=== PATIENT | female | born 1945 | race Caucasian/White ===

== ENCOUNTER 2017-12-22 14:12 | Observation (INO) ==
--- NOTE | 2017-12-22 14:45 | ED ---
HPI General Chief Complaint: Altered Mental Status Stated Complaint: Medical Time Seen by Provider: 12/22/17 14:14 Source: EMS Mode of arrival: EMS Limitations: altered mental status History of Present Illness HPI narrative: 72-year-old female patient presents to the ER today brought in by EMS, apparently according to the family she has been having diarrhea, was helped to the bathroom by family today and was taking a shower when they heard a thud, went in there, found her unresponsive on the floor, and EMS found that she was unresponsive, GCS of 4, started bag valve mask on her because she was breathing at a rate of 4 breaths a minute, and they initially did not get a pulse but once they got her back to the ambulance were able to feel pulse. Patient slowly became more oriented in the ER, does not remember what happened, but does state that she has been having diarrhea. Related Data Home Medications Medication Instructions Recorded Confirmed Unable to Obtain Home Meds 12/22/17 12/22/17 Allergies Allergy/AdvReac Type Severity Reaction Status Date / Time penicillin G Allergy Unknown Nausea Unverified 12/22/17 14:23 Review of Systems ROS Unobtainable unobtainable due to mental status [facility] Medical History Medical History COPD (chronic obstructive pulmonary disease) (Acute) Hyperlipemia (Acute) Hypertension (Acute) Social History Social History Substance History: Active Abuse Second Hand Smoke Exposure: No Smoking Status: Former smoker How Often Do You Have a Drink Containing Alcohol: Never Recent Travel in [facility] within the Last 8 Weeks: No Recent Out of Country Travel within the Last 8 Weeks: No Substance Abuse Detail Marijuana: Substance Use Type Other:: marijuana Immunization History Tetanus Immunization: Unsure Hx Influenza Vaccine This Season: Unable to Assess Exam Narrative Exam Narrative: GENERAL: Well-developed elderly white female patient currently in moderate distress, lethargic, disoriented. SKIN: Focused skin assessment warm/dry. HEAD: Atraumatic. Normocephalic. EYES: Pupils small, equal and round. No scleral icterus. No injection or drainage. ENT: No nasal bleeding or discharge. Mucous membranes pink and moist. NECK: Trachea midline. No JVD. C-collar in place. CARDIOVASCULAR: Regular rate and rhythm. No murmur appreciated. RESPIRATORY: No accessory muscle use. Mild wheezing bilaterally. Breath sounds equal bilaterally. GASTROINTESTINAL: Abdomen soft, non-tender, nondistended. Hepatic and splenic margins not palpable. MUSCULOSKELETAL: No obvious deformities. No clubbing. No cyanosis. No edema. NEUROLOGICAL: Lethargic, disoriented, not following commands, slurred speech. PSYCHIATRIC: Lethargic and disoriented, could not assess. Course Hospital Course: Patient apparently has been having some diarrhea at home, had been given Imodium by her son, and she was complaining today of some respiratory distress, was unresponsive when EMS got there, apneic with respiratory rate of 4, and while in the ER she became more responsive on her own, has been on O2 nasal cannula. It is unclear what caused the episode. Patient does have COPD history. Chest x-ray did not show any signs of obvious pathology. ABG shows some hypercarbia but not significant in this case to have caused this. She does have elevated ammonia levels of uncertain etiology. Her lactate was elevated as well. At this point, she is alert and awake, CAT scan of the brain and neck was unremarkable and c-collar was cleared. My plan would be to admit her for further evaluation of the syncopal episode and apneic episode. Case was discussed with Dr. Glasgow for admission. Initial Documented Vital Signs Pulse Rate 102 H 12/22/17 14:14 Respiratory Rate 14 12/22/17 14:14 Pulse Oximetry 92 L 12/22/17 14:14 Last Documented Vital Signs Temperature 98.7 F 12/22/17 16:12 Pulse Rate 73 12/22/17 16:12 Respiratory Rate 14 12/22/17 16:12 Blood Pressure 103/58 L 12/22/17 16:12 Pulse Oximetry 95 12/22/17 16:12 Medical Decision Making Differential Diagnosis Differential Diagnosis: Syncope versus CVA versus electrolyte abnormalities versus dysrhythmias versus sepsis Lab Data Result diagrams: 12/22/17 14:40 12/22/17 14:40 Lab Results 12/22/17 12/22/17 12/22/17 Range/Units 14:40 14:40 14:40 WBC 10.1 (4.0-11.0) th/mm3 RBC 5.17 (4.00-5.30) mil/mm3 Hgb 14.5 (11.6-15.3) gm/dL Hct 44.6 (35.0-46.0) % MCV 86.3 (80.0-100.0) fL MCH 28.1 (27.0-34.0) pg MCHC 32.5 (32.0-36.0) % RDW 15.7 (11.6-17.2) % Plt Count 355 (150-450) th/mm3 MPV 7.8 (7.0-11.0) fL Prelim Diff (Auto) Slide review pending Neut % (Auto) 34.9 (16.0-70.0) % Lymph % (Auto) 54.2 H (9.0-44.0) % [place] % (Auto) 6.1 (0.0-8.0) % Eos % (Auto) 4.3 H (0.0-4.0) % Baso % (Auto) 0.5 (0.0-2.0) % Neut # (Auto) 3.5 (1.8-7.7) th/mm3 Lymph # (Auto) 5.5 H (1.0-4.8) th/mm3 [place] # (Auto) 0.6 (0.0-0.9) th/mm3 Eos # (Auto) 0.4 (0.0-0.4) th/mm3 Baso # (Auto) 0.0 (0.0-0.2) th/mm3 WBC Differential Manual diff final Seg Neuts % (Manual) 29 (16-70) % Band Neuts % (Manual) 1 (0-6) % Lymphocytes % (Manual) 65 H (9-44) % Monocytes % (Manual) 2 (0-8) % Eosinophils % (Manual) 3 (0-4) % Abs Neuts (Manual) 3.0 (1.8-7.7) th/mm3 Differential Comment . Platelet Estimate Normal (Normal) Platelet Morphology Normal (Normal) PT 13.0 H (9.8-11.6) sec INR 1.3 Ratio APTT 30.0 (24.3-30.1) sec Puncture Site Patient Temperature O2 Saturation (90-100) % ABG pH (7.380-7.420) ABG pCO2 (38-42) mmHg ABG pO2 (61-120) mmHg ABG HCO3 (22-26) mmol/L ABG O2 Content (12.0-20.0) Vol % ABG Base Excess (-2-2) mmol/L ABG Methemoglobin (0-2) % Cj Test Hemoglobin (12.0-16.0) G/DL Carboxyhemoglobin (0-4) % O2 Delivery Device Inspired O2 % Critical Value Sodium 140 (136-145) meq/L Potassium 4.1 (3.5-5.1) meq/L Chloride 104 (98-107) meq/L Carbon Dioxide 22.6 (21.0-32.0) meq/L Anion Gap 13 (5-15) meq/L BUN 16 (7-18) mg/dL Creatinine 1.30 H (0.50-1.00) mg/dL Estimated GFR 40 L (>89) mL/min Random Glucose 186 H (74-106) mg/dL Lactic Acid (0.4-2.0) mmol/L Calcium 8.8 (8.5-10.1) mg/dL Total Bilirubin 0.5 (0.2-1.0) mg/dL AST 162 H (15-37) U/L ALT 79 H (10-53) U/L Alkaline Phosphatase 149 H (45-117) U/L Ammonia (11-32) mcmol/L Troponin I Less than 0.02 L (0.02-0.05) ng/mL Total Protein 7.3 (6.4-8.2) g/dL Albumin 3.7 (3.4-5.0) g/dL TSH 2.560 (0.358-3.740) uIU/mL Urine Color (Yellw/Straw) Urine Clarity (Clear) Urine pH (5.0-8.5) Ur Specific [place] (1.002-1.035) Urine Protein (Neg-Trace) mg/dL Urine Glucose (UA) (Negative) mg/dL Urine Ketones (Negative) mg/dL Urine Occult Blood (Negative) Urine Nitrate (Negative) Urine Bilirubin (Negative) Urine Urobilinogen (Less than 2) mg/dL Ur Leukocyte Esterase (Negative) Urine RBC (0-3) /hpf Urine WBC (0-5) /hpf Ur Squamous Epith Cells (0-5) /hpf Hyaline Casts (0-3) /lpf Urine Mucus (Occasional) /lpf Micro UA Comment Urine Culture Comments Urine Opiates Screen (Neg) Ur Barbiturates Screen (Neg) Ur Amphetamines Screen (Neg) U Benzodiazepines Scrn (Neg) Urine Cocaine Screen (Neg) U Cannabinoids Screen (Neg) Serum Alcohol Less than 3 (0-5) mg/dL 12/22/17 12/22/17 12/22/17 Range/Units 14:40 14:40 14:40 WBC (4.0-11.0) th/mm3 RBC (4.00-5.30) mil/mm3 Hgb (11.6-15.3) gm/dL Hct (35.0-46.0) % MCV (80.0-100.0) fL MCH (27.0-34.0) pg MCHC (32.0-36.0) % RDW (11.6-17.2) % Plt Count (150-450) th/mm3 MPV (7.0-11.0) fL Prelim Diff (Auto) Neut % (Auto) (16.0-70.0) % Lymph % (Auto) (9.0-44.0) % [place] % (Auto) (0.0-8.0) % Eos % (Auto) (0.0-4.0) % Baso % (Auto) (0.0-2.0) % Neut # (Auto) (1.8-7.7) th/mm3 Lymph # (Auto) (1.0-4.8) th/mm3 [place] # (Auto) (0.0-0.9) th/mm3 Eos # (Auto) (0.0-0.4) th/mm3 Baso # (Auto) (0.0-0.2) th/mm3 WBC Differential Seg Neuts % (Manual) (16-70) % Band Neuts % (Manual) (0-6) % Lymphocytes % (Manual) (9-44) % Monocytes % (Manual) (0-8) % Eosinophils % (Manual) (0-4) % Abs Neuts (Manual) (1.8-7.7) th/mm3 Differential Comment Platelet Estimate (Normal) Platelet Morphology (Normal) PT (9.8-11.6) sec INR Ratio APTT (24.3-30.1) sec Puncture Site Patient Temperature O2 Saturation (90-100) % ABG pH (7.380-7.420) ABG pCO2 (38-42) mmHg ABG pO2 (61-120) mmHg ABG HCO3 (22-26) mmol/L ABG O2 Content (12.0-20.0) Vol % ABG Base Excess (-2-2) mmol/L ABG Methemoglobin (0-2) % Cj Test Hemoglobin (12.0-16.0) G/DL Carboxyhemoglobin (0-4) % O2 Delivery Device Inspired O2 % Critical Value Sodium (136-145) meq/L Potassium (3.5-5.1) meq/L Chloride (98-107) meq/L Carbon Dioxide (21.0-32.0) meq/L Anion Gap (5-15) meq/L BUN (7-18) mg/dL Creatinine (0.50-1.00) mg/dL Estimated GFR (>89) mL/min Random Glucose (74-106) mg/dL Lactic Acid 7.5 H* (0.4-2.0) mmol/L Calcium (8.5-10.1) mg/dL Total Bilirubin (0.2-1.0) mg/dL AST (15-37) U/L ALT (10-53) U/L Alkaline Phosphatase (45-117) U/L Ammonia 78 H (11-32) mcmol/L Troponin I (0.02-0.05) ng/mL Total Protein (6.4-8.2) g/dL Albumin (3.4-5.0) g/dL TSH (0.358-3.740) uIU/mL Urine Color (Yellw/Straw) Urine Clarity (Clear) Urine pH (5.0-8.5) Ur Specific [place] (1.002-1.035) Urine Protein (Neg-Trace) mg/dL Urine Glucose (UA) (Negative) mg/dL Urine Ketones (Negative) mg/dL Urine Occult Blood (Negative) Urine Nitrate (Negative) Urine Bilirubin (Negative) Urine Urobilinogen (Less than 2) mg/dL Ur Leukocyte Esterase (Negative) Urine RBC (0-3) /hpf Urine WBC (0-5) /hpf Ur Squamous Epith Cells (0-5) /hpf Hyaline Casts (0-3) /lpf Urine Mucus (Occasional) /lpf Micro UA Comment Urine Culture Comments Urine Opiates Screen Neg (Neg) Ur Barbiturates Screen Neg (Neg) Ur Amphetamines Screen Neg (Neg) U Benzodiazepines Scrn Neg (Neg) Urine Cocaine Screen Neg (Neg) U Cannabinoids Screen Pos H (Neg) Serum Alcohol (0-5) mg/dL 12/22/17 12/22/17 Range/Units 14:40 16:35 WBC (4.0-11.0) th/mm3 RBC (4.00-5.30) mil/mm3 Hgb (11.6-15.3) gm/dL Hct (35.0-46.0) % MCV (80.0-100.0) fL MCH (27.0-34.0) pg MCHC (32.0-36.0) % RDW (11.6-17.2) % Plt Count (150-450) th/mm3 MPV (7.0-11.0) fL Prelim Diff (Auto) Neut % (Auto) (16.0-70.0) % Lymph % (Auto) (9.0-44.0) % [place] % (Auto) (0.0-8.0) % Eos % (Auto) (0.0-4.0) % Baso % (Auto) (0.0-2.0) % Neut # (Auto) (1.8-7.7) th/mm3 Lymph # (Auto) (1.0-4.8) th/mm3 [place] # (Auto) (0.0-0.9) th/mm3 Eos # (Auto) (0.0-0.4) th/mm3 Baso # (Auto) (0.0-0.2) th/mm3 WBC Differential Seg Neuts % (Manual) (16-70) % Band Neuts % (Manual) (0-6) % Lymphocytes % (Manual) (9-44) % Monocytes % (Manual) (0-8) % Eosinophils % (Manual) (0-4) % Abs Neuts (Manual) (1.8-7.7) th/mm3 Differential Comment Platelet Estimate (Normal) Platelet Morphology (Normal) PT (9.8-11.6) sec INR Ratio APTT (24.3-30.1) sec Puncture Site Right radial Patient Temperature 98.6 O2 Saturation 92 (90-100) % ABG pH 7.40 (7.380-7.420) ABG pCO2 45 H (38-42) mmHg ABG pO2 74 (61-120) mmHg ABG HCO3 27 H (22-26) mmol/L ABG O2 Content 16.9 (12.0-20.0) Vol % ABG Base Excess 2.8 H (-2-2) mmol/L ABG Methemoglobin 0.6 (0-2) % Cj Test Y Hemoglobin 13.1 (12.0-16.0) G/DL Carboxyhemoglobin 0.9 (0-4) % O2 Delivery Device Ra Inspired O2 21 % Critical Value No Sodium (136-145) meq/L Potassium (3.5-5.1) meq/L Chloride (98-107) meq/L Carbon Dioxide (21.0-32.0) meq/L Anion Gap (5-15) meq/L BUN (7-18) mg/dL Creatinine (0.50-1.00) mg/dL Estimated GFR (>89) mL/min Random Glucose (74-106) mg/dL Lactic Acid (0.4-2.0) mmol/L Calcium (8.5-10.1) mg/dL Total Bilirubin (0.2-1.0) mg/dL AST (15-37) U/L ALT (10-53) U/L Alkaline Phosphatase (45-117) U/L Ammonia (11-32) mcmol/L Troponin I (0.02-0.05) ng/mL Total Protein (6.4-8.2) g/dL Albumin (3.4-5.0) g/dL TSH (0.358-3.740) uIU/mL Urine Color Yellow (Yellw/Straw) Urine Clarity Hazy H (Clear) Urine pH 6.0 (5.0-8.5) Ur Specific [place] 1.012 (1.002-1.035) Urine Protein 100 H (Neg-Trace) mg/dL Urine Glucose (UA) 50 (Negative) mg/dL Urine Ketones Negative (Negative) mg/dL Urine Occult Blood Small H (Negative) Urine Nitrate Negative (Negative) Urine Bilirubin Negative (Negative) Urine Urobilinogen 2.0 H (Less than 2) mg/dL Ur Leukocyte Esterase Negative (Negative) Urine RBC 5 H (0-3) /hpf Urine WBC 6 H (0-5) /hpf Ur Squamous Epith Cells <1 (0-5) /hpf Hyaline Casts 12 (0-3) /lpf Urine Mucus Few H (Occasional) /lpf Micro UA Comment Culture not ind Urine Culture Comments Culture not ind Urine Opiates Screen (Neg) Ur Barbiturates Screen (Neg) Ur Amphetamines Screen (Neg) U Benzodiazepines Scrn (Neg) Urine Cocaine Screen (Neg) U Cannabinoids Screen (Neg) Serum Alcohol (0-5) mg/dL Imaging Data Radiologist's impression: Chest X-Ray 12/22/17 14:19 CONCLUSION: No acute cardiopulmonary disease. Head CT 12/22/17 14:19 CONCLUSION: Unremarkable study. . Cervical Spine CT 12/22/17 16:21 CONCLUSION: Facet arthrosis, otherwise unremarkable. Discharge Plan Discharge Disposition Patient Disposition: 30 Still Patient Discharge Condition Condition: Good Discharge Details Anticipated Discharge Date: 12/22/17 Diagnosis: Syncope, Apnea spell Physicians Team ED Provider: Wisam Fountain Primary Care Provider: [facility]ician [facility] /Orders / Referrals /Forms Prescriptions: No Action Unable to Obtain Home Meds RF: 0 Discharge Interventions Interventions: Vital Signs Last Done: 12/22/17 16:12 Status ED Status: With Doctor
--- NOTE | 2017-12-22 15:20 | XR ---
EXAM DATE: 12/22/2017 3:05 PM EDT AGE/SEX: 72 years / Female INDICATIONS: Shortness of breath, fall in shower. CLINICAL DATA: This is the patient's initial encounter. Patient reports that signs and symptoms have been present for 1 day and indicates a pain score of 3/10. MEDICAL/SURGICAL HISTORY: Chronic obstructive pulmonary disease. None. COMPARISON: [facility] [place], CHEST SINGLE AP, 05/03/2015. . FINDINGS: The lungs are clear without infiltrate, nodule, or mass. There is no appreciable pleural effusion fo r technique. Borderline cardiomegaly not changed. CONCLUSION: No acute cardiopulmonary disease. Electronically signed by: Bella Leal MD 12/22/2017 3:19 PM EDT
[2017-12-22 15:31] LABS: Baso % (Auto) 0.5 % (0.0-2.0); Eos # (Auto) 0.4 th/mm3 (0.0-0.4); Eos % (Auto) 4.3 % (0.0-4.0); Hematocrit 44.6 % (35.0-46.0); Hemoglobin 14.5 gm/dL (11.6-15.3); Lymph # (Auto) 5.5 th/mm3 (1.0-4.8); Lymph % (Auto) 54.2 % (9.0-44.0); Mean Corpuscular HGB Conc 32.5 % (32.0-36.0); Mean Corpuscular Hemoglobin 28.1 pg (27.0-34.0); Mean Corpuscular Volume 86.3 fL (80.0-100.0); Mean Platelet Volume 7.8 fL (7.0-11.0); Mono # (Auto) 0.6 th/mm3 (0.0-0.9); Mono % (Auto) 6.1 % (0.0-8.0); Neut # (Auto) 3.5 th/mm3 (1.8-7.7); Neut % (Auto) 34.9 % (16.0-70.0); Platelet Count 355 th/mm3 (150-450); Red Blood Count 5.17 mil/mm3 (4.00-5.30); Red Cell Distribution Width 15.7 % (11.6-17.2); White Blood Count 10.1 th/mm3 (4.0-11.0)
[2017-12-22 15:47] LABS: INR 1.3 Ratio
[2017-12-22 15:53] LABS: Alanine Aminotransferase 79 U/L (10-53); Albumin 3.7 g/dL (3.4-5.0); Anion Gap 13 meq/L (5-15); Aspartate Aminotransferase 162 U/L (15-37); Blood Urea Nitrogen 16 mg/dL (7-18); Calcium 8.8 mg/dL (8.5-10.1); Carbon Dioxide 22.6 meq/L (21.0-32.0); Chloride 104 meq/L (98-107); Glomerular Filtration Rate 40 mL/min (>89); Glucose,Random 186 mg/dL (74-106); Potassium 4.1 meq/L (3.5-5.1); Sodium 140 meq/L (136-145)
[2017-12-22 15:55] LABS: Amphetamine Screen,Urine Neg (Neg); Barbiturate Screen,Urine Neg (Neg); Cannabinoid Screen,Urine Pos (Neg); Cocaine Screen,Urine Neg (Neg)
[2017-12-22 15:57] LABS: Bilirubin,Urine Negative (Negative); Clarity,Urine Hazy (Clear); Color,Urine Yellow (Yellw/Straw); Glucose,Urine (UA) 50 mg/dL (Negative); Hyaline Casts,Urine 12 /lpf (0-3); Leukocyte Esterase,Urine Negative (Negative); Mucus,Urine Few /lpf (Occasional); Nitrite,Urine Negative (Negative); Specific Gravity,Urine 1.012 (1.002-1.035); Squamous Epithelial Cell,Urine <1 /hpf (0-5)
[2017-12-22 16:02] LABS: Opiate Screen,Urine Neg (Neg)
[2017-12-22 16:03] LABS: Alkaline Phosphatase 149 U/L (45-117); Eosinophils 3 % (0-4); Lymphocytes 65 % (9-44); Monocytes 2 % (0-8); Total Protein 7.3 g/dL (6.4-8.2)
[2017-12-22 16:05] LABS: Platelet Estimate Normal (Normal); Platelet Morphology Normal (Normal)
[2017-12-22] MEDS ORDERED: Sodium Chlor 0.9% Inj 500 ML IV.SIG ONE (16:10)
[2017-12-22 16:51] LABS: ABG Base Excess 2.8 mmol/L (-2-2); ABG PCO2 45 mmHg (38-42); ABG PO2 74 mmHg (61-120)
--- NOTE | 2017-12-22 17:11 | CT ---
EXAM DATE: 12/22/2017 4:39 PM EDT AGE/SEX: 72 years / Female INDICATIONS: Trauma; fall. CLINICAL DATA: This is the patient's initial encounter. Patient reports that signs and symptoms have been present for 1 day and indicates a pain score of 6/10. MEDICAL/SURGICAL HISTORY: Hypertension. None. RADIATION DOSE: 18.86 CTDI (mGy) COMPARISON: No prior exams available for comparison. TECHNIQUE: Contiguous axial images were obtained using helical multirow detector technique. The vol umetric data was post-processed with multiplanar reconstruction in oblique axial, sagittal, and coron al planes. Using automated exposure control and adjustment of the mA and/or kV according to patient s ize, radiation dose was kept as low as reasonably achievable to obtain optimal diagnostic quality wayne ges. DICOM format image data is available electronically for review and comparison. FINDINGS: No significant subluxation or soft tissue swelling is seen. There is facet arthrosis on the right at C3-4 and on the left at C4-5 to a significant degree. No definite fracture is identified for techniq ue. C2-C3: No appreciable compromise to the thecal sac, exiting nerve roots are seen. The neural foramin a are patent bilaterally. No appreciable thecal sac stenosis is seen. C3-C4: No appreciable compromise to the thecal sac, exiting nerve roots are seen. The neural foramin a are patent bilaterally. No appreciable thecal sac stenosis is seen. C4-C5: No appreciable compromise to the thecal sac, exiting nerve roots are seen. The neural foramin a are patent bilaterally. No appreciable thecal sac stenosis is seen. C5-C6: No appreciable compromise to the thecal sac, exiting nerve roots are seen. The neural foramin a are patent bilaterally. No appreciable thecal sac stenosis is seen. C6-C7: No appreciable compromise to the thecal sac, exiting nerve roots are seen. The neural foramin a are patent bilaterally. No appreciable thecal sac stenosis is seen. C7-T1: No appreciable compromise to the thecal sac, exiting nerve roots are seen. The neural foramin a are patent bilaterally. No appreciable thecal sac stenosis is seen. CONCLUSION: Facet arthrosis, otherwise unremarkable. Electronically signed by: Bella Leal MD 12/22/2017 5:10 PM EDT
--- NOTE | 2017-12-22 17:13 | CT ---
EXAM DATE: 12/22/2017 4:35 PM EDT AGE/SEX: 72 years / Female INDICATIONS: Trauma; fall. CLINICAL DATA: This is the patient's initial encounter. Patient reports that signs and symptoms have been present for 1 day and indicates a pain score of 5/10. MEDICAL/SURGICAL HISTORY: Hypertension. None. RADIATION DOSE: 56.35 CTDI (mGy) COMPARISON: No prior exams available for comparison. TECHNIQUE: CT of the head without contrast. Using automated exposure control and adjustment of the mA and/or kV according to patient size, radiation dose was kept as low as reasonably achievable to ob tain optimal diagnostic quality images. DICOM format image data is available electronically for revi ew and comparison. FINDINGS: There is no evidence for intracranial hemorrhage, mass effect, mass lesions, edema, or extra-axial fl uid collections. The visualized bony structures appear intact. The ventricles are normal size for t he patient's age. There are no signs of acute infarction for technique. CONCLUSION: Unremarkable study. . Electronically signed by: Bella Leal MD 12/22/2017 5:11 PM EDT
[2017-12-22] MEDS ORDERED: Bisacodyl 10 MG Supp RECTAL PRN (18:18)
[2017-12-22] MEDS ORDERED: Thiamine Inj 500 MG in Sodium Chlor 0.9% Inj 250 ML IV.SIG ONE (18:45)
[2017-12-22 19:15] LABS: Amphetamine Urine With Conf Neg (Neg); Benzodiazepine Urine With Conf Neg (Neg)
--- NOTE | 2017-12-22 19:57 | P.HPIM ---
History of Present Illness Primary Care Physician: [facility] History of Present Illness: This is a 72-year-old female with a PMH of HTN, Hyperlipidemia and COPD was brought to the ER by EMS after being found unresponsive on the bathroom floor by family members. Per report, pt w/ GCS 4 and RR 4-6 at that time, upon arrival to ER however pt w/ normal respirations and mental status back to baseline. Per patient she's been having intermittent diarrhea for several days , no nausea/vomiting or abdominal pain. Today, felt acute onset of dizziness while in the shower, states family member helped her to the commode and doesn't remember what happened afterwards. On arrival, BP 162/76, HR 102, O2 sat 92% on RA, Afebrile. CBC essentially unremarkable except for elevated lymphocyte count. INR 1.3. Creatinine 1.30, previously 0.75 on 05/22/2015. Lactic Acid 7.5. LFTs elevated in comparison to previous labs. Ammonia 78. Troponin negative. UA negative for UTI. C. difficile pending. UDS positive for Marijuana. Alcohol negative. CT Head with no acute findings. CT C-Spine with no acute fracture. CXR negative. Pt currently AA&Ox4 w/ no complaints, except feels "tired". - Diagnosis (1) Syncope (2) Fall (3) Lactic acidosis Review of Systems All other systems reviewed negative except as stated in HPI PMFSH - History History Provided By: Patient - Medical History Medical History: Medical History (Last Reviewed 12/22/17 @ 14:43 by Wisam Fountain MD) COPD (chronic obstructive pulmonary disease) Hyperlipemia Hypertension - Tobacco History Second Hand Smoke Exposure: No Smoking Status: Former smoker - Alcohol History How Often Do You Have a Drink Containing Alcohol: Never - Substance Use History Substance History: Active Abuse - Substance Use Type Marijuana Type: marijuana - Travel History Recent Travel in the [place] Within the Last 8 Weeks: No Recent Travel Out of the Country Within the Last 8 Weeks: No - Immunization History Tetanus Immunization: Unsure Hx Influenza Vaccine This Season: Unable to Assess Medications and Allergies Active Medications: Active Medications Al Hydroxide/Mg Hydroxide (Milk Of Magnesia Liq) 30 ml PO Q12H PRN PRN Reason: Mild Constipation Bisacodyl (Dulcolax Supp) 10 mg RECTAL DAILY PRN PRN Reason: SEVERE CONSITIPATION Thiamine HCl 500 mg/ Sodium (Chloride) 255 mls @ 62.5 mls/hr IV.SIG ONCE ONE Stop: 12/22/17 22:49 Last Admin: 12/22/17 19:50 Dose: 62.5 mls/hr Sodium Chloride (Ns Inj) 1,000 mls @ 100 mls/hr IV.CONT .Q10H TAMI Lactulose (Lactulose Liq) 30 ml PO DAILY PRN PRN Reason: SEVERE CONSITIPATION Sennosides (Senokot) 17.2 mg PO Q12H PRN PRN Reason: Moderate Constipation Sodium Chloride (Ns Flush) 2 ml IV.FLUSH PRN PRN PRN Reason: FLUSH AFTER USING IV ACCESS Allergies Allergy/AdvReac Type Severity Reaction Status Date / Time penicillin G Allergy Unknown Nausea Unverified 12/22/17 14:23 Home Medications Medication Instructions Recorded Confirmed Type Unable to Obtain Home Meds 12/22/17 12/22/17 History Exam Vital signs: Vital Signs 12/22/17 14:14 12/22/17 14:19 12/22/17 14:30 Temperature Pulse Rate 102 H Respiratory Rate 14 Blood Pressure 162/76 H Pulse Oximetry 92 L 93 L 12/22/17 15:10 12/22/17 15:14 12/22/17 16:12 Temperature 98.7 F Pulse Rate 78 78 73 Respiratory Rate 16 16 14 Blood Pressure 103/58 L Pulse Oximetry 95 95 12/22/17 18:28 12/22/17 19:39 Temperature Pulse Rate 70 80 Respiratory Rate 16 Blood Pressure 114/55 L 118/68 Pulse Oximetry 99 98 Intake & Output 12/22/17 12/22/17 12/23/17 06:59 18:59 06:59 Weight 72.575 kg Other: # Bowel Movements 1 Narrative: PE: GENERAL: Very pleasant elderly white female in no acute distress, appears tired. HEENT: PERRLA, EOMI. No scleral icterus or conjunctival pallor. No lid lag or facial droop. CARDIOVASCULAR: Regular rate and rhythm. No obvious murmurs to auscultation. No chest tenderness to palpation. RESPIRATORY: No obvious rhonchi or wheezing. Clear to auscultation. Breath sounds equal bilaterally. GASTROINTESTINAL: Abdomen soft, non-tender, nondistended. BS normal. MUSCULOSKELETAL: Extremities without clubbing, cyanosis, or edema. No obvious deformities. NEUROLOGICAL: Awake, alert and oriented x4. No focal neurologic deficits. Moving both upper and lower extremities spontaneously. Results - Labs CBC & Chem 7: 12/22/17 14:40 12/22/17 14:40 Labs: Short CBC 12/22/17 Range/Units 14:40 WBC 10.1 (4.0-11.0) th/mm3 Hgb 14.5 (11.6-15.3) gm/dL Hct 44.6 (35.0-46.0) % Plt Count 355 (150-450) th/mm3 BMP 12/22/17 14:40 Sodium 140 Potassium 4.1 Chloride 104 Carbon Dioxide 22.6 BUN 16 Creatinine 1.30 H Calcium 8.8 Cardiac Enzymes 12/22/17 12/22/17 Range/Units 14:40 14:40 Total Creatine Kinase 89 (26-192) U/L Troponin I Less than 0.02 L (0.02-0.05) ng/mL Liver Function 12/22/17 Range/Units 14:40 Total Bilirubin 0.5 (0.2-1.0) mg/dL AST 162 H (15-37) U/L ALT 79 H (10-53) U/L Alkaline Phosphatase 149 H (45-117) U/L Albumin 3.7 (3.4-5.0) g/dL Urine 12/22/17 Range/Units 14:40 Urine Color Yellow (Yellw/Straw) Urine Clarity Hazy H (Clear) Urine pH 6.0 (5.0-8.5) Ur Specific [place] 1.012 (1.002-1.035) Urine Protein 100 H (Neg-Trace) mg/dL Urine Glucose (UA) 50 (Negative) mg/dL - Imaging Impressions Chest X-Ray 12/22/17 14:19 CONCLUSION: No acute cardiopulmonary disease. Head CT 12/22/17 14:19 CONCLUSION: Unremarkable study. . Cervical Spine CT 12/22/17 16:21 CONCLUSION: Facet arthrosis, otherwise unremarkable. Caprini VTE Risk Assessment Caprini VTE Risk Assessment: No/Low Risk (score <= 1) Caprini Risk Assessment Model: Point Value = 1 Point Value = 2 Point Value = 3 Point Value = 5 Age 41-60 Minor surgery BMI > 25 kg/m2 Swollen legs Varicose veins or History of unexplained or recurrent spontaneous Oral contraceptives or hormone replacement Sepsis (< 1 month) Serious lung disease, including pneumonia (< 1 month) Abnormal pulmonary function Acute myocardial infarction Congestive heart failure (< 1 month) History of inflammatory bowel disease Medical patient at bed rest Age 61-74 Arthroscopic surgery Major open surgery (> 45 min) Laparoscopic surgery (> 45 min) Malignancy Confined to bed (> 72 hours) Immobilizing plaster cast Central venous access Age >= 75 History of VTE Family history of VTE Factor V Leiden Prothrombin [id number] Lupus anticoagulant Anticardiolipin antibodies Elevated serum homocysteine Heparin-induced thrombocytopenia Other congenital or acquired thrombophilia Stroke (< 1 month) Elective arthroplasty Hip, pelvis, or leg fracture Acute spinal cord injury (< 1 month) Prophylaxis Regimen: Total Risk Factor Score Risk Level Prophylaxis Regimen 0-1 Low Early ambulation 2 Moderate Order ONE of the following: *Sequential Compression Device (SCD) *Heparin 5000 units SQ BID 3-4 Higher Order ONE of the following medications: *Heparin 5000 units SQ TID *Enoxaparin/Lovenox 40 mg SQ daily (WT < 150 kg, CrCl > 30 mL/min) *Enoxaparin/Lovenox 30 mg SQ daily (WT < 150 kg, CrCl > 10-29 mL/min) *Enoxaparin/Lovenox 30 mg SQ BID (WT < 150 kg, CrCl > 30 mL/min) AND/OR *Sequential Compression Device (SCD) 5 or more Highest Order ONE of the following medications: *Heparin 5000 units SQ TID (Preferred with Epidurals) *Enoxaparin/Lovenox 40 mg SQ daily (WT < 150 kg, CrCl > 30 mL/min) *Enoxaparin/Lovenox 30 mg SQ daily (WT < 150 kg, CrCl > 10-29 mL/min) *Enoxaparin/Lovenox 30 mg SQ BID (WT < 150 kg, CrCl > 30 mL/min) AND *Sequential Compression Device (SCD) Assessment and Plan - Assessment (1) Syncope Code(s): R55 - Syncope and collapse Status: Acute (2) Fall Code(s): W19.XXXA - Unspecified fall, initial encounter Status: Acute (3) Lactic acidosis Code(s): E87.2 - Acidosis Status: Acute - Plan A/P: 1. Syncope: vs Seizure. Apparent syncopal event while in bathroom, however ? seizure activity. Reports decreased PO intake and multiple episodes of diarrhea , possibly contributing to syncope. IVF for hydration, C Diff pending, will follow. Admit for Observation, telemetry, check Echo to eval for valvular abnormality/cardiomyopathy, check EEG for possible seizure activity, Neuro Consult has been ordered for further eval/recommendations. 2. Fall: secondary to above, CT Head/C-Spine w/ no acute findings, images reviewed. PT for eval/tx. 3. Lactic Acidosis: Lactic Acid 7.5, no signs of sepsis, afebrile, no leukocytosis, U/a negative, CXR negative. ?due to seizure activity, IVF for hydration, repeat Lactic Acid. 4. Elevated LFTs: new in comparison to previous labs from 05/04/15, unclear etiology, ?shock liver from transient hypoperfusion, will repeat labs in am. 5. DVT Prophylaxis: SCD/Teds 6. Social work for d/c planning as needed. 7. Case discussed w/ ER physician at length, labs/records/imaging reviewed by me.
[2017-12-23] MEDS: Sod Chloride 0.9% Inj 1,000 ML IV.CONT SCH ×3 (00:14→20:11)
[2017-12-23 06:24] LABS: Baso # (Auto) 0.1 th/mm3 (0.0-0.2); Baso % (Auto) 0.8 % (0.0-2.0); Eos # (Auto) 0.2 th/mm3 (0.0-0.4); Eos % (Auto) 2.8 % (0.0-4.0); Hematocrit 37.6 % (35.0-46.0); Hemoglobin 12.4 gm/dL (11.6-15.3); Lymph # (Auto) 1.7 th/mm3 (1.0-4.8); Lymph % (Auto) 25.1 % (9.0-44.0); Mean Corpuscular HGB Conc 32.9 % (32.0-36.0); Mean Corpuscular Hemoglobin 28.1 pg (27.0-34.0); Mean Corpuscular Volume 85.5 fL (80.0-100.0); Mean Platelet Volume 7.4 fL (7.0-11.0); Mono # (Auto) 0.7 th/mm3 (0.0-0.9); Mono % (Auto) 10.6 % (0.0-8.0); Neut # (Auto) 4.1 th/mm3 (1.8-7.7); Neut % (Auto) 60.7 % (16.0-70.0); Platelet Count 211 th/mm3 (150-450); Red Cell Distribution Width 15.2 % (11.6-17.2); White Blood Count 6.7 th/mm3 (4.0-11.0)
[2017-12-23 07:05] LABS: Alanine Aminotransferase 89 U/L (10-53); Alkaline Phosphatase 109 U/L (45-117); Anion Gap 9 meq/L (5-15); Aspartate Aminotransferase 90 U/L (15-37); Blood Urea Nitrogen 12 mg/dL (7-18); Calcium 8.1 mg/dL (8.5-10.1); Carbon Dioxide 27.5 meq/L (21.0-32.0); Chloride 106 meq/L (98-107); Glomerular Filtration Rate 85 mL/min (>89); Glucose,Random 82 mg/dL (74-106); Sodium 142 meq/L (136-145); Total Protein 5.8 g/dL (6.4-8.2)
[2017-12-23 07:09] LABS: Potassium 2.8 meq/L (3.5-5.1)
--- NOTE | 2017-12-23 09:18 | P.PN ---
Subjective Interval history: Follow-up visit HTN, HLD, COPD, syncope. Patient seen and examined today. Reports she has been having diarrhea at home that she was in the bathroom and she did not remember how she got into the hospital. States every time she eats food she has diarrhea. States that she has been using marijuana 3 times a week started when she was in chemotherapy before. Last use of marijuana last Sunday. States that she does not smoke it anymore that she has a vaporizer for it. States she has no diarrhea right now. Denies pain and discomfort. Denies SOB/ dyspnea. Denies chest pain, palpitations, headaches, dizziness. Denies fevers, chills. Denies dysuria. Physical Exam Vital signs: Vital Signs 12/22/17 14:14 12/22/17 14:19 12/22/17 14:30 Temperature Pulse Rate 102 H Respiratory Rate 14 Blood Pressure 162/76 H Pulse Oximetry 92 L 93 L 12/22/17 15:10 12/22/17 15:14 12/22/17 16:12 Temperature 98.7 F Pulse Rate 78 78 73 Respiratory Rate 16 16 14 Blood Pressure 103/58 L Pulse Oximetry 95 95 12/22/17 18:28 12/22/17 19:39 12/22/17 20:00 Temperature 97.6 F Pulse Rate 70 80 71 Respiratory Rate 16 20 Blood Pressure 114/55 L 118/68 105/53 L Pulse Oximetry 99 98 98 12/22/17 22:56 12/23/17 04:00 12/23/17 07:24 Temperature 97.6 F 98.8 F 98.1 F Pulse Rate 65 69 62 Respiratory Rate 18 20 16 Blood Pressure 99/55 L 113/55 L 103/50 L Pulse Oximetry 96 97 98 12/23/17 09:12 Temperature Pulse Rate Respiratory Rate Blood Pressure Pulse Oximetry 98 Intake & Output 12/22/17 12/23/17 12/23/17 18:59 06:59 18:59 Intake Total 1235 / 1235 Balance 1235 / 1235 Weight 72.575 kg Intake: IV 755 / 755 NS Inj 500 ML @ Wide Open IV. 500 / 500 SIG BOLUS ONE Rx#:[id number] Thiamine Inj 500 MG In NS Inj 255 / 255 250 ML @ 62.5 mls/hr IV.SIG ONCE ONE Rx#:[id number] Oral 480 / 480 Other: # Voids 1 Date of Last Bowel Movement 12/22/17 # Bowel Movements 1 Narrative: GENERAL: This is a well-nourished, well-developed patient, in no apparent distress. SKIN: Warm and dry. HEENT: Normocephalic. Pupils equal round and reactive. Nose without bleeding. Airway patent. NECK: Trachea midline. No JVD. Supple. CARDIOVASCULAR: Regular rate and rhythm without murmurs, gallops, or rubs. RESPIRATORY: Clear to auscultation. Breath sounds equal bilaterally. No wheezes , rales, or rhonchi. GASTROINTESTINAL: Abdomen soft, non-tender, nondistended. Bowel Sounds normoactive x4. MUSCULOSKELETAL: Extremities without clubbing, cyanosis, or edema. NEUROLOGICAL: Awake and alert. Oriented to time, place, person. No focal neuro deficit. Moves all extremities. Normal speech. Results - Labs CBC & Chem 7: 12/23/17 05:11 12/23/17 05:11 Laboratory Results - last 24 hr 12/22/17 12/22/17 12/22/17 14:40 14:40 14:40 WBC 10.1 RBC 5.17 Hgb 14.5 Hct 44.6 MCV 86.3 MCH 28.1 MCHC 32.5 RDW 15.7 Plt Count 355 MPV 7.8 Prelim Diff (Auto) Slide review pending Neut % (Auto) 34.9 Lymph % (Auto) 54.2 H [place] % (Auto) 6.1 Eos % (Auto) 4.3 H Baso % (Auto) 0.5 Neut # (Auto) 3.5 Lymph # (Auto) 5.5 H [place] # (Auto) 0.6 Eos # (Auto) 0.4 Baso # (Auto) 0.0 WBC Differential Manual diff final Seg Neuts % (Manual) 29 Band Neuts % (Manual) 1 Lymphocytes % (Manual) 65 H Monocytes % (Manual) 2 Eosinophils % (Manual) 3 Abs Neuts (Manual) 3.0 Differential Comment . Platelet Estimate Normal Platelet Morphology Normal PT 13.0 H INR 1.3 APTT 30.0 Puncture Site Patient Temperature O2 Saturation ABG pH ABG pCO2 ABG pO2 ABG HCO3 ABG O2 Content ABG Base Excess ABG Methemoglobin Cj Test Hemoglobin Carboxyhemoglobin O2 Delivery Device Inspired O2 Critical Value Sodium 140 Potassium 4.1 Chloride 104 Carbon Dioxide 22.6 Anion Gap 13 BUN 16 Creatinine 1.30 H Estimated GFR 40 L Random Glucose 186 H Lactic Acid Calcium 8.8 Total Bilirubin 0.5 AST 162 H ALT 79 H Alkaline Phosphatase 149 H Ammonia Total Creatine Kinase Troponin I Less than 0.02 L Total Protein 7.3 Albumin 3.7 TSH 2.560 Urine Color Urine Clarity Urine pH Ur Specific [place] Urine Protein Urine Glucose (UA) Urine Ketones Urine Occult Blood Urine Nitrate Urine Bilirubin Urine Urobilinogen Ur Leukocyte Esterase Urine RBC Urine WBC Ur Squamous Epith Cells Hyaline Casts Urine Mucus Micro UA Comment Urine Culture Comments Stl C.difficile Tox PCR St C. diff Tox Epid 027 Urine Opiates Screen Ur Barbiturates Screen Ur Amphetamine Screen Ur Amphetamines Screen U Benzodiazepines Scrn Urine Cocaine Screen U Cannabinoids Screen Serum Alcohol Less than 3 12/22/17 12/22/17 12/22/17 14:40 14:40 14:40 WBC RBC Hgb Hct MCV MCH MCHC RDW Plt Count MPV Prelim Diff (Auto) Neut % (Auto) Lymph % (Auto) Bay % (Auto) Eos % (Auto) Baso % (Auto) Neut # (Auto) Lymph # (Auto) [place] # (Auto) Eos # (Auto) Baso # (Auto) WBC Differential Seg Neuts % (Manual) Band Neuts % (Manual) Lymphocytes % (Manual) Monocytes % (Manual) Eosinophils % (Manual) Abs Neuts (Manual) Differential Comment Platelet Estimate Platelet Morphology PT INR APTT Puncture Site Patient Temperature O2 Saturation ABG pH ABG pCO2 ABG pO2 ABG HCO3 ABG O2 Content ABG Base Excess ABG Methemoglobin Cj Test Hemoglobin Carboxyhemoglobin O2 Delivery Device Inspired O2 Critical Value Sodium Potassium Chloride Carbon Dioxide Anion Gap BUN Creatinine Estimated GFR Random Glucose Lactic Acid 7.5 H* Calcium Total Bilirubin AST ALT Alkaline Phosphatase Ammonia 78 H Total Creatine Kinase Troponin I Total Protein Albumin TSH Urine Color Urine Clarity Urine pH Ur Specific [place] Urine Protein Urine Glucose (UA) Urine Ketones Urine Occult Blood Urine Nitrate Urine Bilirubin Urine Urobilinogen Ur Leukocyte Esterase Urine RBC Urine WBC Ur Squamous Epith Cells Hyaline Casts Urine Mucus Micro UA Comment Urine Culture Comments Stl C.difficile Tox PCR St C. diff Tox Epid 027 Urine Opiates Screen Neg Ur Barbiturates Screen Neg Ur Amphetamine Screen Ur Amphetamines Screen Neg U Benzodiazepines Scrn Neg Urine Cocaine Screen Neg U Cannabinoids Screen Pos H Serum Alcohol 12/22/17 12/22/17 12/22/17 14:40 14:40 14:40 WBC RBC Hgb Hct MCV MCH MCHC RDW Plt Count MPV Prelim Diff (Auto) Neut % (Auto) Lymph % (Auto) Bay % (Auto) Eos % (Auto) Baso % (Auto) Neut # (Auto) Lymph # (Auto) Bay # (Auto) Eos # (Auto) Baso # (Auto) WBC Differential Seg Neuts % (Manual) Band Neuts % (Manual) Lymphocytes % (Manual) Monocytes % (Manual) Eosinophils % (Manual) Abs Neuts (Manual) Differential Comment Platelet Estimate Platelet Morphology PT INR APTT Puncture Site Patient Temperature O2 Saturation ABG pH ABG pCO2 ABG pO2 ABG HCO3 ABG O2 Content ABG Base Excess ABG Methemoglobin Cj Test Hemoglobin Carboxyhemoglobin O2 Delivery Device Inspired O2 Critical Value Sodium Potassium Chloride Carbon Dioxide Anion Gap BUN Creatinine Estimated GFR Random Glucose Lactic Acid Calcium Total Bilirubin AST ALT Alkaline Phosphatase Ammonia Total Creatine Kinase 89 Troponin I Total Protein Albumin TSH Urine Color Yellow Urine Clarity Hazy H Urine pH 6.0 Ur Specific [place] 1.012 Urine Protein 100 H Urine Glucose (UA) 50 Urine Ketones Negative Urine Occult Blood Small H Urine Nitrate Negative Urine Bilirubin Negative Urine Urobilinogen 2.0 H Ur Leukocyte Esterase Negative Urine RBC 5 H Urine WBC 6 H Ur Squamous Epith Cells <1 Hyaline Casts 12 Urine Mucus Few H Micro UA Comment Culture not ind Urine Culture Comments Culture not ind Stl C.difficile Tox PCR St C. diff Tox Epid 027 Urine Opiates Screen Neg Ur Barbiturates Screen Neg Ur Amphetamine Screen Neg Ur Amphetamines Screen U Benzodiazepines Scrn Neg Urine Cocaine Screen Neg U Cannabinoids Screen Pos H Serum Alcohol 12/22/17 12/22/17 12/22/17 14:50 16:35 18:26 WBC RBC Hgb Hct MCV MCH MCHC RDW Plt Count MPV Prelim Diff (Auto) Neut % (Auto) Lymph % (Auto) Bay % (Auto) Eos % (Auto) Baso % (Auto) Neut # (Auto) Lymph # (Auto) Bay # (Auto) Eos # (Auto) Baso # (Auto) WBC Differential Seg Neuts % (Manual) Band Neuts % (Manual) Lymphocytes % (Manual) Monocytes % (Manual) Eosinophils % (Manual) Abs Neuts (Manual) Differential Comment Platelet Estimate Platelet Morphology PT INR APTT Puncture Site Right radial Patient Temperature 98.6 O2 Saturation 92 ABG pH 7.40 ABG pCO2 45 H ABG pO2 74 ABG HCO3 27 H ABG O2 Content 16.9 ABG Base Excess 2.8 H ABG Methemoglobin 0.6 Cj Test Y Hemoglobin 13.1 Carboxyhemoglobin 0.9 O2 Delivery Device Ra Inspired O2 21 Critical Value No Sodium Potassium Chloride Carbon Dioxide Anion Gap BUN Creatinine Estimated GFR Random Glucose Lactic Acid 1.2 Calcium Total Bilirubin AST ALT Alkaline Phosphatase Ammonia Total Creatine Kinase Troponin I Total Protein Albumin TSH Urine Color Urine Clarity Urine pH Ur Specific [place] Urine Protein Urine Glucose (UA) Urine Ketones Urine Occult Blood Urine Nitrate Urine Bilirubin Urine Urobilinogen Ur Leukocyte Esterase Urine RBC Urine WBC Ur Squamous Epith Cells Hyaline Casts Urine Mucus Micro UA Comment Urine Culture Comments Stl C.difficile Tox PCR Negative St C. diff Tox Epid 027 Negative Urine Opiates Screen Ur Barbiturates Screen Ur Amphetamine Screen Ur Amphetamines Screen U Benzodiazepines Scrn Urine Cocaine Screen U Cannabinoids Screen Serum Alcohol 12/23/17 12/23/17 05:11 05:11 WBC 6.7 RBC 4.40 Hgb 12.4 D Hct 37.6 MCV 85.5 MCH 28.1 MCHC 32.9 RDW 15.2 Plt Count 211 D MPV 7.4 Prelim Diff (Auto) Neut % (Auto) 60.7 Lymph % (Auto) 25.1 [place] % (Auto) 10.6 H Eos % (Auto) 2.8 Baso % (Auto) 0.8 Neut # (Auto) 4.1 Lymph # (Auto) 1.7 [place] # (Auto) 0.7 Eos # (Auto) 0.2 Baso # (Auto) 0.1 WBC Differential . Seg Neuts % (Manual) Band Neuts % (Manual) Lymphocytes % (Manual) Monocytes % (Manual) Eosinophils % (Manual) Abs Neuts (Manual) Differential Comment Auto diff final Platelet Estimate Platelet Morphology PT INR APTT Puncture Site Patient Temperature O2 Saturation ABG pH ABG pCO2 ABG pO2 ABG HCO3 ABG O2 Content ABG Base Excess ABG Methemoglobin Cj Test Hemoglobin Carboxyhemoglobin O2 Delivery Device Inspired O2 Critical Value Sodium 142 Potassium 2.8 L* D Chloride 106 Carbon Dioxide 27.5 Anion Gap 9 BUN 12 Creatinine 0.68 Estimated GFR 85 L Random Glucose 82 D Lactic Acid Calcium 8.1 L Total Bilirubin 0.4 AST 90 H ALT 89 H Alkaline Phosphatase 109 Ammonia Total Creatine Kinase Troponin I Total Protein 5.8 L D Albumin 3.0 L D TSH Urine Color Urine Clarity Urine pH Ur Specific [place] Urine Protein Urine Glucose (UA) Urine Ketones Urine Occult Blood Urine Nitrate Urine Bilirubin Urine Urobilinogen Ur Leukocyte Esterase Urine RBC Urine WBC Ur Squamous Epith Cells Hyaline Casts Urine Mucus Micro UA Comment Urine Culture Comments Stl C.difficile Tox PCR St C. diff Tox Epid 027 Urine Opiates Screen Ur Barbiturates Screen Ur Amphetamine Screen Ur Amphetamines Screen U Benzodiazepines Scrn Urine Cocaine Screen U Cannabinoids Screen Serum Alcohol Microbiology 12/22/17 14:50 Stool Stool for WBCs - Final No WBC's seen - Imaging Impressions Chest X-Ray 12/22/17 14:19 CONCLUSION: No acute cardiopulmonary disease. Head CT 12/22/17 14:19 CONCLUSION: Unremarkable study. . Cervical Spine CT 12/22/17 16:21 CONCLUSION: Facet arthrosis, otherwise unremarkable. Assessment and Plan - Assessment (1) Syncope Code(s): R55 - Syncope and collapse Status: Acute (2) Fall Code(s): W19.XXXA - Unspecified fall, initial encounter Status: Acute (3) Lactic acidosis Code(s): E87.2 - Acidosis Status: Acute - Plan 72-year-old female with a PMH of HTN, Hyperlipidemia and COPD was brought to the ER by EMS after being found unresponsive on the bathroom floor by family members. Syncope vs Seizure Status post fall -Apparent syncopal event while in bathroom, ?seizure activity. -Reports decreased PO intake and multiple episodes of diarrhea, possibly contributing to syncope. -IVF for hydration -C Diff negative -Placed on telemetry -Pending Echo to eval for valvular abnormality/cardiomyopathy -check EEG for possible seizure activity -Neuro Consult has been ordered for further eval/recommendations. Cardiology consult recommended. -MRI of the brain showed chronic small vessel ischemic and atrophic changes. Head MRA showed Chronic atherosclerotic disease without evidence of truncation or definite filling defects. -Neck MRA showed dominant left vertebral artery and right vertebral artery is hypoplastic with very little flow identified within it distally prior to insertion onto basilar artery. -CT of the spine showed facet arthrosis, otherwise unremarkable -PT eval and treat Diarrhea -C. difficile negative. -Lactinex BID Hypokalemia -Possibly secondary to diarrhea, dehydration -Replenish. -Recheck potassium Lactic Acidosis -Lactic Acid 7.5, no signs of sepsis, afebrile, no leukocytosis -U/a negative, CXR negative. -IVF for hydration -Repeat Lactic Acid within normal 1.2 Elevated LFTs, acute -new in comparison to previous labs from 05/04/15, unclear etiology -Possible hypoperfusion. Repeat labs shows improvement DVT Prophylaxis: SCD/Teds Code Status: Full Code Discussed Condition With: Patient, nursing Discharge Planning: Plan to DC home when clinically improved. Pending recommendations from PT
--- NOTE | 2017-12-23 09:25 | MB ---
cc: Marky Valdez MD DATE: 12/23/2017 HISTORY OF PRESENT ILLNESS: A 72-year-old right-handed woman with a history of atrial fibrillation, chronic obstructive pulmonary disease, upper extremity deep venous thrombosis, ejection fraction 25% in 2015, hematuria somewhat after starting the Xarelto. 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 She tells me status post chemo. She has had diarrhea for about a week and she had it yesterday. She was in the shower showering herself off after having the diarrhea and she remembers the fall to the ground, did not seem to pass out there and then she did not pass out later until she got on the commode, so that was the first time she passed out. The son heard the thud. He went in and found her on the floor. She was awake at that time. They sat her on the commode and then she got very short of breath and passed out on the commode and came the ambulance carried her out of the house and had to bag her. Could not get a pulse and then eventually pulse came back. She does not remember anything about the ride to the hospital. When the son saw her in the hospital, she had awoken. There was no seizure activity. SOCIAL HISTORY: Nonsmoker, nondrinker, lives with her son. FAMILY HISTORY: She is adopted. REVIEW OF SYSTEMS: Denies any hypertension, diabetes. There has been some hypercholesterolemia. She denies any history of renal, hepatic, thyroid disease, lupus, ulcer, seizure or stroke. MEDICATIONS AT HOME: 1. She is on inhalers. 2. Pravastatin. 3. Xarelto 20 a day. 4. Potassium. 5. Enalapril. 6. Omeprazole. 7. Carvedilol. 8. Fluoxetine 60 a day. 9. Lasix. PHYSICAL EXAMINATION: VITAL SIGNS: Blood pressure anywhere from initially 160/76 and as low as 99/55. NECK: There were no carotid bruits. HEART: Regular rate and rhythm. I did not detect a murmur. NEUROLOGIC: Pupils are equal. Visual weeks full. Extraocular movements intact without nystagmus. Face is symmetric with normal sensation. Tongue was midline. There is no drift. Normal strength in upper and lower extremities bilaterally. Toes downgoing bilaterally. DTRs trace throughout. Pinprick is intact throughout. She is not ataxic on [id number]. She has a mild headache in the back of her head since the fall, but not before. LABORATORY DATA: CBC is normal. UA essentially negative. BMP: Potassium is 2.8, has come up to normal now. LFTs minimally elevated to 162/79, AST/ALT, ammonia 78, TSH normal. ABG 7.4, 45,74. Coags normal. Urine drug screen positive for marijuana. C. difficile negative. Cervical spine CT generally unremarkable. Troponin and CPK were negative. CT of the brain read as negative, maybe a few white matter changes in the high cerebrum subcortically. EKG showed some ST depressions, otherwise sinus. IMPRESSION/PLAN: I think it is unlikely this is a seizure. I think likely this was probably some hypotension with the diarrhea, the low ejection fraction. We will check some standing blood pressures on her. I would recommend having Cardiology see her. Continue on her anticoagulation with history of atrial fibrillation. We will check an MRI of the brain, carotid ultrasound. Treatment for her diarrhea should be instituted if possible from the med team. I think this is more of a syncope episode and how much could have been due to a low oxygen level after she got up from the floor versus hypotension, is unclear. If cardiology clears her and her blood pressure standing and MRIs and MRAs look fine and EEG is done, she can be discharged neuro-mora. MD ED Myrick/JAMAAL , 08:56 AM , 09:04 AM
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
[2017-12-23] MEDS: Potassium Chlor 20 mEq Premix 20 MEQ/100 ML PIGGYBACK IV.SIG SCH ×2 (11:35→13:36)
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
[2017-12-23] MEDS ORDERED: Gadobutrol PF 10 MMOL/10 ML Vial (for RAD) IV.SIG ONE (11:36)
[2017-12-23] MEDS: FLUoxetine 20 MG Capsule PO SCH (11:42)
[2017-12-23] MEDS: Rivaroxaban 20 MG Tablet PO SCH (11:43)
[2017-12-23] MEDS: Carvedilol 12.5 MG Tablet PO SCH ×2 (11:44→20:09)
--- NOTE | 2017-12-23 14:42 | ECG ---
Date Performed: 12/22/2017 Time Performed: 15:00:44 PTAGE: 72 years EKG: Sinus rhythm LOW QRS VOLTAGE IN EXTREMITY LEADS SEPTAL MYOCARDIAL INFARCTION MODERATE T-WAVE ABNORMALITY, CONSIDE R LATERAL ISCHEMIA Since previous tracing, no significant change noted ABNORMAL ECG PREVIOUS TRACING : 05/03/2015 11.23.50 DOCTOR: Dionicio Rojo Interpretating Date/Time 12/23/2017 14:40:43
[2017-12-23 16:26] LABS: Magnesium 1.6 mg/dL (1.5-2.5); T4 (Thyroxine) 8.9 mcg/dL (4.8-13.9)
[2017-12-23 16:51] LABS: Thyroid Stimulating Hormone 0.97 uIU/mL (0.358-3.740)
[2017-12-23] MEDS: Lactobacillus Acidophilus/L. Spores Tablet PO SCH ×2 (17:42→20:09)
--- NOTE | 2017-12-23 18:42 | MG ---
cc: Marky Valdez MD EEG [id number] Hyperventilation not performed. INDICATION: Syncopal episode. MEDICATIONS: Xarelto. DESCRIPTION: An 8-12 Hz, symmetric 60 microvolt posterior rhythm is seen. A lot of muscle artifact is seen over the bitemporal head regions. The recording overall is synchronous and symmetric. Photic stimulation is performed with some symmetric posterior driving. No epileptiform or seizure activity is noted. There are no hemisphere asymmetries. IMPRESSION: Normal awake electroencephalogram. No evidence for focal or diffuse abnormality. MD ED Myrick/piotr/klaudia , 06:03 PM , 06:08 PM
[2017-12-23] MEDS: Pantoprazole Sodium 20 MG DR Tablet PO SCH (19:19)
[2017-12-23] MEDS ORDERED: Acetaminophen 325 MG Tablet PO ONE (22:01)
[2017-12-24] MEDS: Sod Chloride 0.9% Inj 1,000 ML IV.CONT SCH ×2 (03:32→11:00)
[2017-12-24 06:24] LABS: Baso # (Auto) 0.1 th/mm3 (0.0-0.2); Baso % (Auto) 0.7 % (0.0-2.0); Eos # (Auto) 0.3 th/mm3 (0.0-0.4); Eos % (Auto) 3.6 % (0.0-4.0); Hematocrit 36.5 % (35.0-46.0); Hemoglobin 12.1 gm/dL (11.6-15.3); Lymph # (Auto) 1.4 th/mm3 (1.0-4.8); Lymph % (Auto) 17.3 % (9.0-44.0); Mean Corpuscular HGB Conc 33.3 % (32.0-36.0); Mean Corpuscular Hemoglobin 28.4 pg (27.0-34.0); Mean Corpuscular Volume 85.5 fL (80.0-100.0); Mean Platelet Volume 7.6 fL (7.0-11.0); Mono # (Auto) 0.7 th/mm3 (0.0-0.9); Mono % (Auto) 8.8 % (0.0-8.0); Neut # (Auto) 5.7 th/mm3 (1.8-7.7); Neut % (Auto) 69.6 % (16.0-70.0); Platelet Count 192 th/mm3 (150-450); Red Blood Count 4.27 mil/mm3 (4.00-5.30); Red Cell Distribution Width 15.6 % (11.6-17.2); White Blood Count 8.2 th/mm3 (4.0-11.0)
[2017-12-24] MEDS: Pantoprazole Sodium 20 MG DR Tablet PO SCH (06:34)
[2017-12-24 07:00] LABS: Anion Gap 7 meq/L (5-15); Blood Urea Nitrogen 8 mg/dL (7-18); Calcium 8.3 mg/dL (8.5-10.1); Carbon Dioxide 28.2 meq/L (21.0-32.0); Chloride 106 meq/L (98-107); Glomerular Filtration Rate Greater Than 89 mL/min (>89); Glucose,Random 90 mg/dL (74-106); Sodium 141 meq/L (136-145)
--- NOTE | 2017-12-24 08:15 | P.PNNEU ---
Subjective Subjective Comments: No acute events reported No headache Active Medications: Active Medications Al Hydroxide/Mg Hydroxide (Milk Of Magnesia Liq) 30 ml PO Q12H PRN PRN Reason: Mild Constipation Albuterol (Duoneb Neb (Prn)) 1 ampul NEB Q2HR NEB PRN PRN Reason: SHORTNESS OF BREATH/WHEEZING Last Admin: 12/23/17 22:23 Dose: 1 ampul Bisacodyl (Dulcolax Supp) 10 mg RECTAL DAILY PRN PRN Reason: SEVERE CONSITIPATION Carvedilol (Coreg) 6.25 mg PO BID [facility] Last Admin: 12/23/17 20:09 Dose: 6.25 mg Fluoxetine HCl (Prozac) 60 mg PO DAILY [facility] Last Admin: 12/23/17 11:42 Dose: 60 mg Guaifenesin (Robitussin Liq) 400 mg PO BID PRN PRN Reason: COUGH Sodium Chloride (Ns Inj) 1,000 mls @ 100 mls/hr IV.CONT .Q10H [facility] Last Infusion: 12/24/17 04:30 Dose: 70 mls/hr Lactobacillus Acidophilus (Lactinex) 1 tab PO BID [facility] Last Admin: 12/23/17 20:09 Dose: 1 tab Lactulose (Lactulose Liq) 30 ml PO DAILY PRN PRN Reason: SEVERE CONSITIPATION Pantoprazole Sodium (Protonix) 20 mg PO AC BREAKFAST [facility] Last Admin: 12/24/17 06:34 Dose: 20 mg Pravastatin Sodium (Pravachol) 10 mg PO HS [facility] Last Admin: 12/23/17 20:08 Dose: 10 mg Rivaroxaban (Xarelto) 20 mg PO DAILY [facility] Last Admin: 12/23/17 11:43 Dose: 20 mg Sennosides (Senokot) 17.2 mg PO Q12H PRN PRN Reason: Moderate Constipation Sodium Chloride (Ns Flush) 2 ml IV.FLUSH PRN PRN PRN Reason: FLUSH AFTER USING IV ACCESS Allergies/Adverse Reactions: Allergies Allergy/AdvReac Type Severity Reaction Status Date / Time penicillin G Allergy Unknown Nausea Unverified 12/22/17 14:23 Physical Exam Vital signs: Vital Signs 12/23/17 09:12 12/23/17 11:51 12/23/17 12:07 Temperature 97.8 F Pulse Rate 68 71 Respiratory Rate 20 16 Blood Pressure 142/62 H Pulse Oximetry 98 90 L 12/23/17 16:00 12/23/17 17:14 12/23/17 19:24 Temperature 98.8 F 98.4 F Pulse Rate 74 76 74 Respiratory Rate 17 18 16 Blood Pressure 131/58 L 143/65 H Pulse Oximetry 93 L 100 12/23/17 22:24 12/23/17 23:00 12/24/17 03:37 Temperature 99.5 F 97.7 F Pulse Rate 76 73 68 Respiratory Rate 16 16 16 Blood Pressure 128/59 L 144/65 H Pulse Oximetry 96 95 12/24/17 07:21 Temperature 97.6 F Pulse Rate 70 Respiratory Rate 16 Blood Pressure 128/63 Pulse Oximetry 96 Intake & Output 12/23/17 12/24/17 12/24/17 18:59 06:59 18:59 Intake Total 100 / 100 1100 / 1100 Balance 100 / 100 1100 / 1100 Intake: IV 100 / 100 1100 / 1100 NS Inj 1,000 ML @ 100 mls/hr IV 1000 / 1000 .CONT .Q10H [facility] Rx#:[id number] KCl 20 mEq Premix Inj 20 meq In 100 / 100 100 / 100 100 ml @ 50 mls/hr IV.SIG Q2H [facility] Rx#:[id number] Other: Date of Last Bowel Movement 12/23/17 Narrative: awake nad nl voice Objective Laboratory Results - last 24 hr 12/23/17 12/24/17 12/24/17 14:10 04:45 04:45 WBC 8.2 RBC 4.27 Hgb 12.1 Hct 36.5 MCV 85.5 MCH 28.4 MCHC 33.3 RDW 15.6 Plt Count 192 MPV 7.6 Neut % (Auto) 69.6 Lymph % (Auto) 17.3 [place] % (Auto) 8.8 H Eos % (Auto) 3.6 Baso % (Auto) 0.7 Neut # (Auto) 5.7 Lymph # (Auto) 1.4 [place] # (Auto) 0.7 Eos # (Auto) 0.3 Baso # (Auto) 0.1 WBC Differential . Differential Comment Auto diff final Sodium 141 Potassium 3.0 L Chloride 106 Carbon Dioxide 28.2 Anion Gap 7 BUN 8 Creatinine 0.59 Estimated GFR Greater than 89 Random Glucose 90 Calcium 8.3 L Magnesium 1.6 Vitamin B12 446 TSH 0.970 Thyroxine (T4) 8.9 Microbiology 12/22/17 14:35 Aerobic Blood Culture - Preliminary Blood - Peripheral No growth in 1 day Anaerobic Blood Culture - Preliminary No growth in 1 day 12/22/17 14:40 Aerobic Blood Culture - Preliminary Blood - Peripheral No growth in 1 day Anaerobic Blood Culture - Preliminary No growth in 1 day 12/22/17 14:50 Stool for WBCs - Final Stool No WBC's seen Review/Management - Review/Management Plan: imp mri/a/a and eeg neg lab ok standing bp she tells me ok cannot find on computer if cards clears can dc syncope doubt sz low ef
[2017-12-24] MEDS: Carvedilol 12.5 MG Tablet PO SCH ×2 (08:44→20:48)
[2017-12-24] MEDS: FLUoxetine 20 MG Capsule PO SCH (08:44)
[2017-12-24] MEDS: Rivaroxaban 20 MG Tablet PO SCH (08:45)
[2017-12-24] MEDS: Lactobacillus Acidophilus/L. Spores Tablet PO SCH ×2 (08:45→20:47)
[2017-12-24] MEDS ORDERED: Potassium Chlor 20 mEq Premix 20 MEQ/100 ML PIGGYBACK IV.SIG ONE (08:45)
[2017-12-24] MEDS ORDERED: Potassium Chloride 25 MEQ Effervescent Tablet PO ONE (08:45)
[2017-12-24] MEDS ORDERED: Mag Sulf 1 gm/100 ml Premix 100 ML IV.SIG ONE (09:00)
--- NOTE | 2017-12-24 09:39 | P.PN ---
Subjective Interval history: Follow-up visit HTN, HLD, COPD, syncope. Patient seen and examined today. Reports she is doing well. Denies any diarrhea. Denies pain and discomfort. Denies SOB/ dyspnea. Denies chest pain, palpitations, headaches, dizziness. Denies fevers, chills, n/v. Denies hematuria, dysuria. Physical Exam Vital signs: Vital Signs 12/23/17 11:51 12/23/17 12:07 12/23/17 16:00 Temperature 97.8 F 98.8 F Pulse Rate 68 71 74 Respiratory Rate 20 16 17 Blood Pressure 142/62 H 131/58 L Pulse Oximetry 90 L 93 L 12/23/17 17:14 12/23/17 19:24 12/23/17 22:24 Temperature 98.4 F Pulse Rate 76 74 76 Respiratory Rate 18 16 16 Blood Pressure 143/65 H Pulse Oximetry 100 12/23/17 23:00 12/24/17 03:37 12/24/17 07:21 Temperature 99.5 F 97.7 F 97.6 F Pulse Rate 73 68 70 Respiratory Rate 16 16 16 Blood Pressure 128/59 L 144/65 H 128/63 Pulse Oximetry 96 95 96 Intake & Output 12/23/17 12/24/17 12/24/17 18:59 06:59 18:59 Intake Total 100 / 100 1100 / 1100 Balance 100 / 100 1100 / 1100 Intake: IV 100 / 100 1100 / 1100 NS Inj 1,000 ML @ 100 mls/hr IV 1000 / 1000 .CONT .Q10H [facility] Rx#:[id number] KCl 20 mEq Premix Inj 20 meq In 100 / 100 100 / 100 100 ml @ 50 mls/hr IV.SIG Q2H [facility] Rx#:[id number] Other: Date of Last Bowel Movement 12/23/17 Narrative: GENERAL: This is a well-nourished, well-developed patient, in no apparent distress. SKIN: Warm and dry. HEENT: Normocephalic. Pupils equal round and reactive. Nose without bleeding. Airway patent. NECK: Trachea midline. Supple. CARDIOVASCULAR: Regular rate and rhythm without murmurs, gallops, or rubs. RESPIRATORY: Clear to auscultation. Breath sounds equal bilaterally. No wheezes , rales, or rhonchi. GASTROINTESTINAL: Abdomen soft, non-tender, nondistended. Bowel Sounds normoactive x4. MUSCULOSKELETAL: Extremities without clubbing, cyanosis, or edema. NEUROLOGICAL: Awake and alert. Oriented to place, person. No focal neuro deficit. Moves all extremities. Normal speech. Results - Labs CBC & Chem 7: 12/24/17 04:45 12/24/17 04:45 Laboratory Results - last 24 hr 12/23/17 12/24/17 12/24/17 14:10 04:45 04:45 WBC 8.2 RBC 4.27 Hgb 12.1 Hct 36.5 MCV 85.5 MCH 28.4 MCHC 33.3 RDW 15.6 Plt Count 192 MPV 7.6 Neut % (Auto) 69.6 Lymph % (Auto) 17.3 [place] % (Auto) 8.8 H Eos % (Auto) 3.6 Baso % (Auto) 0.7 Neut # (Auto) 5.7 Lymph # (Auto) 1.4 [place] # (Auto) 0.7 Eos # (Auto) 0.3 Baso # (Auto) 0.1 WBC Differential . Differential Comment Auto diff final Sodium 141 Potassium 3.0 L Chloride 106 Carbon Dioxide 28.2 Anion Gap 7 BUN 8 Creatinine 0.59 Estimated GFR Greater than 89 Random Glucose 90 Calcium 8.3 L Magnesium 1.6 Vitamin B12 446 TSH 0.970 Thyroxine (T4) 8.9 Microbiology 12/22/17 14:35 Blood - Peripheral Aerobic Blood Culture - Preliminary No growth in 1 day 12/22/17 14:35 Blood - Peripheral Anaerobic Blood Culture - Preliminary No growth in 1 day 12/22/17 14:40 Blood - Peripheral Aerobic Blood Culture - Preliminary No growth in 1 day 12/22/17 14:40 Blood - Peripheral Anaerobic Blood Culture - Preliminary No growth in 1 day 12/22/17 14:50 Stool Stool for WBCs - Final No WBC's seen - Imaging Impressions Head MRI 12/23/17 00:00 CONCLUSION: Chronic small vessel ischemic and atrophic changes. Neck MRA 12/23/17 00:00 CONCLUSION: 1. Dominant left vertebral artery and the right vertebral artery is hypoplastic with very little flow identified within it distally prior to insertion onto basilar artery. Percent stenosis is calculated using the diameter of the stenotic region over the diameter of the normal distal internal carotid artery Assessment and Plan - Assessment (1) Syncope Code(s): R55 - Syncope and collapse Status: Acute (2) Fall Code(s): W19.XXXA - Unspecified fall, initial encounter Status: Acute (3) Lactic acidosis Code(s): E87.2 - Acidosis Status: Acute - Plan 72-year-old female with a PMH of HTN, Hyperlipidemia and COPD was brought to the ER by EMS after being found unresponsive on the bathroom floor by family members. Syncope vs Seizure Status post fall -Apparent syncopal event while in bathroom, ?seizure activity. -Reports decreased PO intake and multiple episodes of diarrhea, possibly contributing to syncope. -IVF for hydration provided -C Diff negative -Placed on telemetry -Pending Echo to eval for valvular abnormality/cardiomyopathy -EEG Normal awake electroencephalogram. No evidence for focal or diffuse abnormality. -Neuro Consult has been ordered for further eval/recommendations. Cardiology consult recommended. -MRI of the brain showed chronic small vessel ischemic and atrophic changes. Head MRA showed Chronic atherosclerotic disease without evidence of truncation or definite filling defects. -Neck MRA showed dominant left vertebral artery and right vertebral artery is hypoplastic with very little flow identified within it distally prior to insertion onto basilar artery. -CT of the spine showed facet arthrosis, otherwise unremarkable -PT eval and treat -Holter monitor in place. -Pending cardiology consult. As per neurology if cleared by cards able to DC patient home. Diarrhea -C. difficile negative. -Lactinex BID Hypokalemia -Possibly secondary to diarrhea, dehydration -Replenish. -Recheck potassium Lactic Acidosis -Lactic Acid 7.5, no signs of sepsis, afebrile, no leukocytosis -U/a negative, CXR negative. -IVF for hydration given -Repeat Lactic Acid within normal 1.2 Elevated LFTs, acute -new in comparison to previous labs from 05/04/15, unclear etiology -Possible hypoperfusion. Repeat labs shows improvement DVT Prophylaxis: SCD/Teds Code Status: Full code Discussed Condition With: Patient, nurse Discharge Planning: Plan to DC home when cleared by cardiology.? Echo pending
--- NOTE | 2017-12-24 20:24 | ECHRPT ---
Indication: CVA/TIA CONCLUSIONS Normal left ventricular size. Wall thickness is normal. The left ventricular systolic function is normal with an estimated ejection fraction in the range of 55-60%. No regional wall motion abnormalities are present. Trace mitral valve regurgitation. The aortic valve is not well visualized. There is trace tricuspid valve regurgitation. The estimated pulmonary arterial pressure is 50 mmHg. BP: / HR: Rhythm: Sinus Technical Quality:Good FINDINGS LEFT VENTRICLE Normal left ventricular size. Wall thickness is normal. The left ventricular systolic function is normal with an estimated ejection fraction in the range of 55-60%. No regional wall motion abnormalities are present. RIGHT VENTRICLE Normal right ventricular size and systolic function. LEFT ATRIUM The left atrial size is normal. RIGHT ATRIUM The right atrial size is normal. ATRIAL SEPTUM Normal atrial septal thickness without atrial level shunting by limited color doppler interrogation. AORTA The aortic root and proximal ascending aorta are normal in size on limited imaging. MITRAL VALVE Structurally normal mitral valve. Trace mitral valve regurgitation. AORTIC VALVE The aortic valve is not well visualized. TRICUSPID VALVE Structurally normal tricuspid valve. There is trace tricuspid valve regurgitation. The estimated pulmonary arterial pressure is 50 mmHg. PULMONARY VALVE The pulmonary valve is not well visualized. VESSELS The inferior vena cava is normal in size. PERICARDIUM No pericardial effusion. Felix Cohen MD (Electronically Signed) Final Date:24 December 2017 20:23
--- NOTE | 2017-12-24 22:16 | HM ---
Date Performed: 12/22/2017 Time Performed: 22:35:00 HOOKUP DATE: 12/22/17 10:35:00 PM Sat ANALYSIS START TIME: 12/22/2017 10:40:00 PM ANALYSIS END TIME: 12/23/2017 9:54:34 PM PATIENT AGE: 72 PATIENT HEIGHT: 64 PATIENT WEIGHT: 160 DRUG LIST: SYNCOPE PATIENT DIAGNOSIS: ROOM G76 TEST NARRATIVE: The patient's average heart rate was 69 BPM. No episodes of tachycardia wer e noted. No episodes of bradycardia were noted. No pauses exceeding 2.0 seconds were noted. 25 ventricular ectopics, which represented < 1% of the total beat count, were noted. The highest kei tricular ectopic frequency occurred from 02:00 AM to 03:00 AM Sun. During this time 4 VE(s) occurred . Ventricular ectopics were observed as 23 isolated beat(s) and as 1 couplet(s). No runs were noted . 894 supraventricular ectopics, which represented 1% of the total beat count, were noted. The h ighest supraventricular ectopic frequency occurred from 04:00 PM to 05:00 PM Sun. During this time 7 9 SVE(s) occurred. In channel 1, a single episode of ST depression (defined as -1.0 mm or more) o ccurred at 10:27:14 AM Sun with a maximum depression of -1.7 mm. No episodes of ST depression (defin ed as -1.0 mm or more) were noted in channel 2. No episodes of ST depression (defined as -1.0 mm or more) were noted in channel 3. NO DIARY GIVEN TO PATIENT TEST INTERPRETATION: 1. predominant underlying rhythm is Sinus rhythm 2. Occasional PACs and PVCs and one ventricular couplet 3. NO pauses > 2 sec noted 4. No episodes of AFIB, SVT or VT noted during the recorded time interval Signed by : Ty Salazar
[2017-12-25 03:27] VITALS: RESP 16
[2017-12-25] MEDS: Pantoprazole Sodium 20 MG DR Tablet PO SCH (06:23)
[2017-12-25] MEDS ORDERED: Acetaminophen 500 MG Tablet PO PRN (07:40)
[2017-12-25] MEDS: FLUoxetine 20 MG Capsule PO SCH (08:08)
[2017-12-25] MEDS: Carvedilol 12.5 MG Tablet PO SCH (08:08)
[2017-12-25] MEDS: Rivaroxaban 20 MG Tablet PO SCH (08:08)
[2017-12-25] MEDS: Lactobacillus Acidophilus/L. Spores Tablet PO SCH (08:08)
--- NOTE | 2017-12-25 08:24 | P.DCO ---
- Physical Therapy Order: Evaluate and treat - Home Health Nursing Order: Signs/symptoms of disease process, Medication education-adverse effect, Nursing assessment with vital signs - Certification I have seen patient Chelsea Cruz on 12/25/17. My clinical findings support the need for the requested home health care services because: Patient has SOB, Deconditioned with increased weakness, Medication compliance is questionable, Limited ability to care for self I certify that my clinical findings support that this patient is homebound because: Unsteady gait/balance, Unsafe to leave home unassisted
--- NOTE | 2017-12-25 08:50 | P.DS ---
Date of admission: 12/22/17 18:18 Primary care physician: [facility] Attending physician on discharge: Shalom Herr Anticipated date of discharge: 12/25/17 Brief History from admission: This is a 72-year-old female with a PMH of HTN, Hyperlipidemia and COPD was brought to the ER by EMS after being found unresponsive on the bathroom floor by family members. Per report, pt w/ GCS 4 and RR 4-6 at that time, upon arrival to ER however pt w/ normal respirations and mental status back to baseline. Per patient she's been having intermittent diarrhea for several days , no nausea/vomiting or abdominal pain. Today, felt acute onset of dizziness while in the shower, states family member helped her to the commode and doesn't remember what happened afterwards. On arrival, BP 162/76, HR 102, O2 sat 92% on RA, Afebrile. CBC essentially unremarkable except for elevated lymphocyte count. INR 1.3. Creatinine 1.30, previously 0.75 on 05/22/2015. Lactic Acid 7.5. LFTs elevated in comparison to previous labs. Ammonia 78. Troponin negative. UA negative for UTI. C. difficile pending. UDS positive for Marijuana. Alcohol negative. CT Head with no acute findings. CT C-Spine with no acute fracture. CXR negative. Pt currently AA&Ox4 w/ no complaints, except feels "tired". DS: Diagnosis - Discharge Diagnosis (1) Syncope Status: Acute (2) Fall Status: Acute (3) Lactic acidosis Status: Acute DS: Medications - Discharge Medications Prescriptions: furosemide 20 mg PO DAILY #30 tab ipratropium-albuterol 1 amp NEB Q4HR NEB PRN #90 ml PRN Reason: Shortness Of Breath/Wheezing DS: Summary Hospital Course: 72-year-old female with a PMH of HTN, Hyperlipidemia and COPD was brought to the ER by EMS after being found unresponsive on the bathroom floor by family members. Unclear etiology syncope versus seizure after a fall. Reports decreased p.o. intake and multiple episodes of diarrhea prior to coming to the hospital. This can possibly contribute to her syncopal episode. Patient was given IV fluids for hydration. Her stool was tested for C. difficile and it was negative. Her echo evaluation came back to be with an EF of 55-60%. Her EEG was normal awake electroencephalogram. No evidence for focal or diffuse abnormality. Neurology was consulted for the patient for further evaluation. Multiple diagnostic tests have been done including MRI of the brain that showed chronic small vessel ischemic and atrophic changes. Head MRA showed Chronic atherosclerotic disease without evidence of truncation or definite filling defects. Neck MRA showed dominant left vertebral artery and right vertebral artery is hypoplastic with very little flow identified within it distally prior to insertion onto basilar artery. CT of the spine showed facet arthrosis, otherwise unremarkable. She was also seen by research chef which cleared her for discharge. Holter monitor was placed on the patient was interpreted by research chef. She was hypokalemic when she came in possibly secondary to diarrhea and dehydration it was replenished and her potassium came back 3.3 were and she was asked to take more potassium tablets about 40 M EQ's. Initial admission also showed lactic acidosis at 7.5 with no signs of sepsis patient has been asymptomatic with no leukocytosis. Her UA was negative and her chest x -ray was negative. Repeat lactic acid was within normal at 1.2. She was found to have acute transaminitis possibly from hypoperfusion but repeat labs showed improvement. Patient has history of COPD and has been receiving DuoNeb treatments at the hospital. She had a walk test done were and she passed a walk test not needing any oxygen for home. Discussed with patient and family member that she needs to continue her nebulization and compliance with inhalers at home. She also needs to stop Vaping marijuana, exposure to second hand smoke. Patient has met maximal benefits of hospitalization. Clinically stable for discharge. She will be discharged with home health care. - Time Spent with Patient Total time spent providing and/or coordinating discharge services: Greater than 30 minutes - Quality: VTE Deep Vein Thrombosis/Pulmonary Embolism Present on Admission: No Exam Vital signs: Vital Signs 12/24/17 10:51 12/24/17 11:44 12/24/17 12:00 Temperature 98.3 F Pulse Rate 70 60 62 Respiratory Rate 16 18 Blood Pressure 115/54 L Pulse Oximetry 12/24/17 12:11 12/24/17 12:13 12/24/17 15:15 Temperature 98.5 F Pulse Rate 66 71 78 Respiratory Rate 18 Blood Pressure 105/53 L 122/58 L 147/66 H Pulse Oximetry 96 12/24/17 17:22 12/24/17 20:00 12/25/17 00:00 Temperature 99.0 F 98.7 F Pulse Rate 78 70 68 Respiratory Rate 18 16 16 Blood Pressure 126/56 L 135/63 Pulse Oximetry 98 98 12/25/17 00:22 12/25/17 03:25 12/25/17 07:38 Temperature 98.9 F 98.4 F Pulse Rate 80 78 83 Respiratory Rate 18 16 16 Blood Pressure 137/68 154/69 H Pulse Oximetry 86 L 94 L 12/25/17 08:14 Temperature Pulse Rate 73 Respiratory Rate 16 Blood Pressure Pulse Oximetry 98 Intake & Output 12/24/17 12/25/17 12/25/17 18:59 06:59 18:59 Intake Total 1200 / 1200 Balance 1200 / 1200 Intake: IV 1200 / 1200 NS Inj 1,000 ML @ 100 mls/hr IV 1000 / 1000 .CONT .Q10H [facility] Rx#:[id number] Other: Date of Last Bowel Movement 12/25/17 Narrative: GENERAL: This is a well-nourished, well-developed patient, in no apparent distress. SKIN: Warm and dry. HEENT: Normocephalic. Pupils equal round and reactive. Nose without bleeding. Airway patent. NECK: Trachea midline. Supple. CARDIOVASCULAR: Regular rate and rhythm without murmurs, gallops, or rubs. RESPIRATORY: Breath sounds equal bilaterally. No wheezes, rales, or rhonchi. GASTROINTESTINAL: Abdomen soft, non-tender, nondistended. Bowel Sounds normoactive x4. MUSCULOSKELETAL: Extremities without clubbing, cyanosis, or edema. NEUROLOGICAL: Awake and alert. Oriented to place, person. No focal neuro deficit. Moves all extremities. Normal speech. Results Procedures completed during hospitalization: None Labs on day of discharge: Preliminary micro results at discharge 12/22/17 14:35 Aerobic Blood Culture - Preliminary Blood - Peripheral No growth in 2 days Anaerobic Blood Culture - Preliminary No growth in 2 days 12/22/17 14:40 Aerobic Blood Culture - Preliminary Blood - Peripheral No growth in 2 days Anaerobic Blood Culture - Preliminary No growth in 2 days - Impressions ITS Impressions Chest X-Ray 12/22/17 14:19 CONCLUSION: No acute cardiopulmonary disease. Head CT 12/22/17 14:19 CONCLUSION: Unremarkable study. . Cervical Spine CT 12/22/17 16:21 CONCLUSION: Facet arthrosis, otherwise unremarkable. Head MRI 12/23/17 00:00 CONCLUSION: Chronic small vessel ischemic and atrophic changes. Neck MRA 12/23/17 00:00 CONCLUSION: 1. Dominant left vertebral artery and the right vertebral artery is hypoplastic with very little flow identified within it distally prior to insertion onto basilar artery. Percent stenosis is calculated using the diameter of the stenotic region over the diameter of the normal distal internal carotid artery Discharge Plan - Discharge Disposition Patient Disposition: /Home Health Service - Discharge Condition Condition: Good - Discharge Order Discharge Orders: Discharge Order (Routine); Ordered 12/25/17 Ordered By: Justyn Olivares - Discharge Details Anticipated Discharge Date: 12/22/17 - Physicians Team Primary Care Provider: [facility] Attending Provider: Shalom Herr Other Providers: Marky Cruz MD ; Petra Damon ; Dionicio Rojo MD
[2017-12-25] MEDS ORDERED: Budesonide-Formoterol 160/4.5 MCG 6 GM Inhaler INH SCH (09:00)
[2017-12-25 11:51] VITALS: O2SAT 93
[2017-12-25 11:54] VITALS: BP 104/51; PULSE 70; TEMP 97.7
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
[2017-12-25 13:14] LABS: Anion Gap 6 meq/L (5-15); Blood Urea Nitrogen 8 mg/dL (7-18); Calcium 8.7 mg/dL (8.5-10.1); Carbon Dioxide 29.8 meq/L (21.0-32.0); Chloride 104 meq/L (98-107); Glomerular Filtration Rate Greater Than 89 mL/min (>89); Glucose,Random 131 mg/dL (74-106); Potassium 3.3 meq/L (3.5-5.1); Sodium 140 meq/L (136-145)
== END 2017-12-25 14:39 | disposition home health service (06) ==
LOC: NEPGCP 14:12 → NEPC 14:12 → NEDA 18:18 → INTOOBSV 18:18 → NEDA 20:12 → NEPGCP 20:13
PROVIDERS: ADMIT Hospitalist; ATTEND Hospitalist